=== PATIENT | male | born 1980 | race Caucasian/White ===

== ENCOUNTER 2024-10-30 21:37 | Inpatient (IN) | payer OTHER, BC ==
[~2024-10-30] VITALS: Ht 195.6 cm; Wt 162.0 kg
[2024-10-30 22:08] VITALS: BP 155/90
[2024-10-30] MEDS ORDERED: VANCOMYCIN HCL 1 GM in SODIUM CHLORIDE 0.9% 500 ML IV ONE (22:20)
[2024-10-30] MEDS ORDERED: Levofloxacin 750 mg Premix 150 ML IV ONE (22:20)
[2024-10-30] MEDS ORDERED: SODIUM CHLORIDE 0.9% 1,000 ML IV ONE (22:20)
[2024-10-30] MEDS ORDERED: MORPHINE SULFATE 4 MG/ML VIAL IV ONE (22:25)
[2024-10-30] MEDS ORDERED: PROMETHAZINE HCL 25 MG/ML AMP IV ONE (22:25)
[2024-10-30] MEDS ORDERED: ALUM & MAG HYDROX-SIMETHICONE 30 ML PO PRN (22:45)
[2024-10-30] MEDS ORDERED: SODIUM CHLORIDE 0.9% 1,000 ML IV PRN (22:45)
[2024-10-30] MEDS ORDERED: ACETAMINOPHEN 325 MG/TAB PO PRN (22:45)
[2024-10-30] MEDS ORDERED: IBUPROFEN 800 MG/TAB PO PRN ×3 (22:45→23:50)
[2024-10-30] MEDS ORDERED: FAMOTIDINE 10MG/ML 2ML SDV IV PRN (22:45)
[2024-10-30] MEDS ORDERED: ONDANSETRON 4 MG/TAB ODT PO PRN (22:45)
[2024-10-30] MEDS ORDERED: Polyethylene Glycol 3350 17 GM/PKT PO PRN (22:45)
[2024-10-30] MEDS ORDERED: ENOXAPARIN SODIUM 40 MG/0.4 ML SYR SC ONE (22:45)
[2024-10-30] MEDS ORDERED: ONDANSETRON HCl 4 MG/2 ML SDV IV PRN (22:45)
[2024-10-30] MEDS ORDERED: MORPHINE SULFATE 4 MG/ML VIAL IV PRN ×2 (22:50→23:50)
[2024-10-30] MEDS ORDERED: oxyCODONE 5MG/ ACETAMINOPHEN 325MG TAB PO PRN ×2 (22:50→23:50)
[2024-10-30] MEDS ORDERED: KETOROLAC TROMETHAMINE 30 MG/ML SDV IV PRN ×3 (22:50→23:55)
[2024-10-30 22:53] LABS: BASO% 0.5 % (0-3); EOS% 3.4 % (0-8); HEMOGLOBIN 12.8 g/dl (14.0-18.0); IMMATURE GRANULOCYTES 0.1 % (0.0-5.0); LYMPH% 17.1 % (15-41); MEAN CELL VOLUME 85.4 fL CALC (80.0-100.0); MEAN CORPUSCULAR HGB 26.7 pG CALC (26.0-32.0); MEAN CORPUSCULAR HGB CONC 31.2 g/dL CAL (32.0-36.0); MONO% 7.3 % (2-13); NEUT# 7.26 thou/uL (1.82-7.42); NEUT% 71.6 % (42-76); RED BLOOD COUNT 4.8 mill/uL (4.70-6.10); RED CELL DISTRI WIDTH 13.1 % (11.5-15.5)
[2024-10-30 23:01] VITALS: BP 145/83
[2024-10-30 23:02] LABS: ALBUMIN 4.5 g/dL (3.2-5.0); BILIRUBIN, TOTAL 0.7 mg/dL (0.2-1.3); POTASSIUM 4.7 mmol/l (3.5-5.1); TOTAL PROTEIN 8.5 g/dL (6.3-8.2)
[2024-10-30] MEDS ORDERED: TRAMADOL HYDRO200 MG PO (23:09)
[2024-10-30] MEDS ORDERED: HYDROCO/APAP1 TA9 PO (23:09)
[2024-10-30] MEDS ORDERED: NEURONTIN600 MG PO (23:09)
[2024-10-30 23:31] VITALS: BP 126/68
[2024-10-30] MEDS ORDERED: Levofloxacin 750 mg Premix 150 ML IV SCH (23:42)
[2024-10-31] VITALS (9 sets, daily range): BP systolic 113–146; BP diastolic 55–88
[2024-10-31] MEDS ORDERED: VANCOMYCIN HCL 1 GM in SODIUM CHLORIDE 0.9% 250 ML IV SCH
[2024-10-31] MEDS ORDERED: VANCOMYCIN HCL 1.5 GM in SODIUM CHLORIDE 0.9% 500 ML IV SCH (08:00)
[2024-10-31] MEDS ORDERED: VANCOMYCIN HCL 1,500 MG in SODIUM CHLORIDE 0.9% 470 ML IV SCH (09:00)
[2024-10-31] MEDS ORDERED: HYDROcodone 5 MG/Acetaminophen 325 MG/COMBO PO PRN (10:35)
[2024-10-31] MEDS ORDERED: Levofloxacin 750 mg Premix 150 ML IV SCH (23:00)
[2024-11-01 04:20] LABS: BASO% 0.4 % (0-3); EOS% 2.1 % (0-8); HEMATOCRIT 35.9 % (39.0-50.0); HEMOGLOBIN 11.4 g/dl (14.0-18.0); IMMATURE GRANULOCYTES 0.1 % (0.0-5.0); LYMPH% 10.7 % (15-41); MEAN CELL VOLUME 85.9 fL CALC (80.0-100.0); MEAN CORPUSCULAR HGB 27.3 pG CALC (26.0-32.0); MEAN CORPUSCULAR HGB CONC 31.8 g/dL CAL (32.0-36.0); MONO% 7.7 % (2-13); NEUT# 7.88 thou/uL (1.82-7.42); RED BLOOD COUNT 4.18 mill/uL (4.70-6.10)
[2024-11-01 04:30] LABS: ALBUMIN 3.9 g/dL (3.2-5.0); BILIRUBIN, TOTAL 0.6 mg/dL (0.2-1.3); CREATININE 0.9 mg/dL (0.7-1.3); MAGNESIUM 1.8 mg/dL (1.6-2.3); POTASSIUM 4.5 mmol/l (3.5-5.1); TOTAL PROTEIN 7.6 g/dL (6.3-8.2)
[2024-11-01 05:10] VITALS: BP 171/91
[2024-11-01 07:13] VITALS: BP 127/56
== END 2024-11-01 11:25 | disposition home or self-care (01) | DRG 560 ==
LOC: ED 21:37 → ED-I 22:30 → ED 22:48 → MS2 22:49
PROVIDERS: Family Medicine; Nurse Practitioner Family; ADMIT Internal Medicine; ATTEND Internal Medicine
DX: T84.69XA Infection and inflammatory reaction due to internal fixation device of other site, initial encounter (principal); L03.115 Cellulitis of right lower limb; M86.171 Other acute osteomyelitis, right ankle and foot; B95.7 Other staphylococcus as the cause of diseases classified elsewhere; F17.290 Nicotine dependence, other tobacco product, uncomplicated; Y83.1 Surgical operation with implant of artificial internal device as the cause of abnormal reaction of the patient, or of later complication, without mention of misadventure at the time of the procedure; S92.101S Unspecified fracture of right talus, sequela; V89.2XXS Person injured in unspecified motor-vehicle accident, traffic, sequela
CPT/HCPCS: J1650; J2405; J2550; J3370